=== PATIENT | male | born 1955 | race Caucasian/White ===

== ENCOUNTER 2019-06-16 07:37 | Inpatient (IN) ==
--- NOTE | 2019-06-01 19:42 | PAT Medication Instructions ---
Medication Instructions Date of Service June 01, 2019 Home Medications acetaminophen [Tylenol Arthritis Pain] 1,300 mg PO HS 05/15/19 [History Confirmed 05/15/19] atorvastatin 10 mg PO HS 05/15/19 [History Confirmed 05/15/19] cholecalciferol (vitamin D3) [Vitamin D3] 2,000 unit PO QAM 05/15/19 [History Confirmed 05/15/19] diclofenac sodium 2 g TOPICAL UD PRN 05/15/19 [History Confirmed 05/15/19] glucosamine sulfate [Glucosamine] 2,000 mg PO QAM 05/15/19 [History Confirmed 05/15/19] lisinopril 10 mg PO HS 05/15/19 [History Confirmed 05/15/19] [Multivitamin 50 Plus] 1 tab PO QAM 05/15/19 [History Confirmed 05/15/19] naproxen sodium [Aleve] 440 mg PO QAM 05/15/19 [History Confirmed 05/15/19] ASK your surgeon for instructions naproxen sodium [Aleve] 440 mg PO QAM 05/15/19 [History Confirmed 05/15/19] STOP taking 2 weeks before surgery (or as soon as possible if surgery is within 2 weeks) glucosamine sulfate [Glucosamine] 2,000 mg PO QAM 05/15/19 [History Confirmed 05/15/19] STOP taking 24 hours before surgery diclofenac sodium 2 g TOPICAL UD PRN 05/15/19 [History Confirmed 05/15/19] DO NOT take the morning of surgery cholecalciferol (vitamin D3) [Vitamin D3] 2,000 unit PO QAM 05/15/19 [History Confirmed 05/15/19] [Multivitamin 50 Plus] 1 tab PO QAM 05/15/19 [History Confirmed 05/15/19] Take evening before surgery acetaminophen [Tylenol Arthritis Pain] 1,300 mg PO HS 05/15/19 [History Confirmed 05/15/19] atorvastatin 10 mg PO HS 05/15/19 [History Confirmed 05/15/19] lisinopril 10 mg PO HS 05/15/19 [History Confirmed 05/15/19] Other Notes If you have any questions please call us at [phone] or [phone] or [phone] or [phone]
--- NOTE | 2019-06-02 11:43 | Anesthesiology Consultation ---
Date of Service June 02, 2019 Assessment & Plan (1) Encounter for pre-operative examination: - Awaiting review of preop testing (labs, EKG, CXR). Chart Review Chart Review: Patient seen in Pre Admission Testing Teaching & Discussion Pre-Anesthesia Teaching/Discussion Notes: Instructed NPO after midnight before surgery,except medications with 15 cc of water. Medication instructions provided according to the PAT guidelines. History Surgery Operation Date: 06/16/19 09:25 Proposed Procedures p Left Anterior Total Hip Arthroplasty - Felice Gillette DO Height/Weight Height: 5 ft 11 in Weight: 80.6 kg Allergies Allergy/AdvReac Type Severity Reaction Status Date / Time No Known Allergies Allergy Verified 05/15/19 08:24 Medications Home Medications Medication Instructions Recorded Confirmed Last Taken acetaminophen [Tylenol Arthritis 1,300 mg PO HS 05/15/19 05/15/19 Unknown Pain] atorvastatin 10 mg PO HS 05/15/19 05/15/19 Unknown cholecalciferol (vitamin D3) 2,000 unit PO QAM 05/15/19 05/15/19 Unknown [Vitamin D3] diclofenac sodium 2 g TOPICAL UD PRN 05/15/19 05/15/19 Unknown glucosamine sulfate [Glucosamine] 2,000 mg PO QAM 05/15/19 05/15/19 Unknown lisinopril 10 mg PO HS 05/15/19 05/15/19 Unknown [id number] 1 tab PO QAM 05/15/19 05/15/19 Unknown [Multivitamin 50 Plus] naproxen sodium [Aleve] 440 mg PO QAM 05/15/19 05/15/19 Unknown Past Medical History Medical History Chronic back pain Hyperlipidemia Hypertension Osteoarthritis Temporomandibular joint disorder + clicking, no locking Exercise / Class Metabolic Activity II 4-5 Yardwork/Stairs/Walk up hill Past Family History Family History Mother No problems noted. Father Family history of diabetes mellitus Brother Family history of diabetes mellitus Past Surgical History Surgical History H/O removal of testicle LEFT H/O wrist surgery RIGHT History of colonoscopy Past Anesthesia History No Hx of Anesthesia Complications Mother- post-op respiratory distress (no further details). History of PONV No Hx of PONV and No Hx of Motion Sickness Social History Smoking Status: Former smoker tobacco type: cigars Do You Dip or Chew Tobacco: No Smoking End Date: QUIT 05/18/19 (hx tobacco use 15+ years) Hx Alcohol Use: No Hx Substance Use: No Review of Systems Patient denies chest pain, shortness of breath, dyspnea on exertion, cough, wheezing, palpitations. Physical Exam Vital Signs VITALS BP 124/70 P 70 TEMP 97.6 SP02 98%RA RESP 16 PHYSICAL Full neck and c-spine range of motion. Full TMJ range of motion. TMD 3 finger breaths Mallampati Score 1 Dentition: missing molar, chipped molar Lungs: clear throughout to auscultation Cardiac: regular rate and rhythm, no murmurs noted Spine: normal Carotid arteries: negative bruit Extremities: no edema
[2019-06-02 12:11] LABS: Basophils # (auto) 0.02 K/uL (0-0.2); Basophils % (auto) 0.2 %; Eosinophils # (auto) 0.13 K/uL (0-0.5); Eosinophils % (auto) 1.2 %; Hematocrit (blood only) 46.3 % (42-52); Hemoglobin 16.3 g/dL (14.0-18.0); Immature Granulocytes # (auto) 0.03 K/uL (0.00-0.02); Immature Granulocytes % (auto) 0.3 %; Lymphocytes # (auto) 3.71 K/uL (1.2-3.4); Lymphocytes % (auto) 35.3 %; Mean Corpuscular Hemoglobin 33.8 pg (25-34); Mean Corpuscular Hgb Conc 35.2 g/dL (32-36); Mean Corpuscular Volume 96.1 fL (80-100); Mean Platelet Volume 9.4 fL (7.4-10.4); Monocytes # (auto) 0.67 K/uL (0.11-0.59); Monocytes % (auto) 6.4 %; Neutrophils # (auto) 5.94 K/uL (1.4-6.5); Neutrophils % (auto) 56.6 %; Platelet Count 247 K/uL (130-400); Red Blood Count 4.82 M/uL (4.7-6.1)
--- NOTE | 2019-06-02 12:20 | XRay Report ---
XR chest Pre-admission PA/Lat CLINICAL HISTORY: 63 years-old Male presenting with preoperative assessment. TECHNIQUE: PA and lateral views of the chest were obtained. COMPARISON: None. FINDINGS: Atherosclerosis of the aortic arch. Cardiac silhouette normal in size. Lungs and pleural spaces clear . Osseous structures normal. Upper abdomen normal. IMPRESSION: 1. No acute cardiopulmonary disease. ACT 112: Negative or not required by law. Electronically signed by: Johan Ulloa M.D. 06/02/2019 12:18 PM
[2019-06-02 12:27] LABS: Partial Thromboplastin Ratio 0.9; Partial Thromboplastin Time 25.1 Seconds (21.0-31.0); Prothrombin Time 10.2 Seconds (9.0-12.0)
[2019-06-02 12:31] LABS: Estimated Average Glucose 114 mg/dl; Hemoglobin A1C 5.6 % (4.5-5.6)
[2019-06-02 12:35] LABS: Appearance Urine Clear (Clear); Bacteria Urine Automated Negative (Negative); Bilirubin Urine Negative (Negative); Blood Urine Trace (Negative); Cast Urine Automated 0 /lpf (0-5); Color Urine Dark Yellow; Glucose Urine UA Negative (Negative); Ketones Urine Trace (Negative); Leukocyte Esterase Urine Negative (Negative); Nitrite Urine Negative (Negative); Protein Urine Negative (Negative); Specific Gravity Urine 1.029 (1.000-1.030); Urobilinogen Urine Negative (Negative)
[2019-06-02 14:09] LABS: Albumin Level 4.2 gm/dl (3.4-5.0); BUN Creatinine Ratio 25.9 (10-20); Calcium 9.4 mg/dl (8.5-10.1); Creatinine Clr Calc Pharmacy 83.2 ml/min; Est GFR (African American) 95.4; Est GFR (Non-African American) 82.3; Potassium 4.4 mmol/L (3.5-5.1)
--- NOTE | 2019-06-02 23:00 | Electrocardiogram Report ---
Test Reason : Blood Pressure : / mmHG Vent. Rate : 066 BPM Atrial Rate : 066 BPM P-R Int : 136 ms QRS Dur : 088 ms QT Int : 396 ms P-R-T Axes : 061 060 055 degrees QTc Int : 415 ms Normal sinus rhythm Normal ECG No previous ECGs available Confirmed by Jerson Borden ([id number]) on 06/02/2019 11:00:30 PM Referred By: Felice Gillette Confirmed By:Jerson Borden
--- NOTE | 2019-06-15 20:25 | History & Physical Report ---
Date of Service June 15, 2019 Assessment & Plan (1) Degenerative joint disease of left hip: I have indicated the patient for left anterior total hip replacement. The risks, benefits and complications of surgery were explained to the patient which include but not limited to infection, acute blood loss, DVT/PE, injury to nerves, vessels, bone, soft tissue, arthrofibrosis, chronic pain, failure of the prosthesis, hip dislocation, leg length discrepancy, need for additional surgery, cardiac and pulmonary events and . The patient wished to proceed with surgery and informed consent was obtained at this time. We will plan for ASA BID post-operatively for DVT prophylaxis. Upon discharge the patient will be discharged home with home health services. Appropriate clearances by PCP were obtained. History of Present Illness Chief Complaint: Left hip pain/djd Primary Care Provider: Marilia Hobbs DO The patient is a 63 year old male who presents with complaints of severe left hip pain and DJD. The patient has failed outpatient conservative treatments to this point which included NSAIDs, IA corticosteroid injection, PT and a home exercise/walking program. The patient's pain and limited function have progressed to the point where they severely hinder their activities of daily living and they no longer tolerate exercise programs. They are requesting to proceed with total hip replacement surgery. Allergies Allergy/AdvReac Type Severity Reaction Status Date / Time No Known Allergies Allergy Verified 06/16/19 08:09 Home Medications Home Medications Medication Instructions Recorded Confirmed Type acetaminophen [Tylenol Arthritis 1,300 mg PO HS 05/15/19 06/16/19 History Pain] atorvastatin 10 mg PO HS 05/15/19 06/16/19 History cholecalciferol (vitamin D3) 2,000 unit PO QAM 05/15/19 06/16/19 History [Vitamin D3] diclofenac sodium 2 g TOPICAL UD PRN 05/15/19 06/16/19 History glucosamine sulfate [Glucosamine] 2,000 mg PO QAM 05/15/19 06/16/19 History lisinopril 10 mg PO HS 05/15/19 06/16/19 History emlvuflkxzao-hvqxsmef-fyjskh 1 tab PO QAM 05/15/19 06/16/19 History [Multivitamin 50 Plus] naproxen sodium [Aleve] 440 mg PO QAM 05/15/19 06/16/19 History Past Med/Surg History Medical History Chronic back pain Hyperlipidemia Hypertension Osteoarthritis Temporomandibular joint disorder + clicking, no locking Surgical History (Updated 06/16/19 @ 08:08 by Demetria Nielsen RN) H/O removal of testicle right H/O wrist surgery RIGHT History of colonoscopy Family History Mother No problems noted. 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 Required: No Beliefs That Will Affect Care: None Current Living Situation: Spouse Other Information That Helps Us Care for You: No Feels Safe at Home: Yes Safety Concerns: Feels Safe At This Time Smoking Status: Former smoker Tobacco Type: cigars ; Do You Dip or Chew Tobacco: No ; Smoking End Date: QUIT 05/18/19 (hx tobacco use 15+ years) ; Second Hand Exposure: No ; Hx Alcohol Use: No Hx Substance Use: No Review of Systems Review of Systems: All systems reviewed & are unremarkable except as noted in HPI & below Constitutional: as per Subjective / HPI Physical Exam Physical Exam: LLE NVSI +EHL/FHL/TA/GS SILT grossly, +2 DP pulse, compartments soft NT, limited painful ROM of the hip antalgic gait. Constitutional: WD/WN, vitals as above Eyes: PERRL, conjunctivae normal, anicteric sclerae ENMT: external ear and nose normal, oropharynx normal Neck: trachea midline, no thyromegaly Respiratory: normal respiratory effort, lungs clear to auscultation Cardiovascular: RRR, no murmur, no edema Gastrointestinal (Abdomen): normal bowel sounds, soft, nontender, no hepatosplenomegaly Musculoskeletal: no cyanosis or clubbing, extremities motor strength 5/5 Skin: no rashes, warm and dry Neurologic: patellar DTR's 2+ bilat, sensation intact Psychiatric: A+Ox3, euthymic affect Lymphatic: no cervical or axillary lymphadenopathy Results & Data Diagnostic Findings Multiple views of the hip demonstrates severe DJD with complete loss of the joint space. +osteophytes, +sclerosis, +subchondral cysts.
[~2019-06-16 07:37] MED LIST: ACETAMINOPHEN 500 MG TAB PO SCH; BUPIVACAINE 0.5 % 5 MG/1 ML PF 10ML VIAL ONE; CEFAZOLIN 2000MG 2,000 MG/15 ML SYR IV SCH; CeleBREX 200 MG CAP PO SCH; FAMOTIDINE 20 MG TAB PO SCH; LR 500ML BOLUS, THEN 15ML/HR IV SCH; METOCLOPRAMIDE HCL 10 MG TABLET PO SCH; ROPIVACAINE 0.5% HCL/PF 150 MG, BUPIVACAINE 0.5% MPF 30 ML, EPINEPHrine 30MG/30ML (OR U... INFIL SCH; TRANEXAMIC ACID 1,000 MG **IV Intra-op IV SCH; TRANEXAMIC ACID 1,000 MG **IV Pre-op IV SCH; dexAMETHasone 4 MG TAB PO SCH
[2019-06-16] MEDS ORDERED: MIDAZOLAM HCL 1 MG/ML 2ML VIAL ONE (07:47)
[2019-06-16] MEDS ORDERED: GLYCOPYRROLATE 0.2 MG/ML VIAL ONE (08:40)
[2019-06-16] MEDS ORDERED: KETAMINE HCL INJ 50 MG/ML 10 ML VIAL ONE (08:40)
[2019-06-16] MEDS ORDERED: PROPOFOL IV EMULSION 10 MG/ML 20 ML VIAL IV ONE ×3 (08:40→11:00)
[2019-06-16] MEDS ORDERED: LIDOCAINE HCL 2% 2 ML VIAL/AMP(20MG/ML) INFIL ONE (08:40)
[2019-06-16] MEDS ORDERED: ONDANSETRON INJ 2 MG/ML 2 ML VIAL ONE (08:40)
[2019-06-16] MEDS ORDERED: ONDANSETRON INJ 2 MG/ML 2 ML VIAL IV PRN ×2 (09:03→12:53)
[2019-06-16] MEDS ORDERED: fentaNYL citrate 100 MCG/2 ML VIAL IV PRN (09:03)
[2019-06-16] MEDS ORDERED: ATROPINE SULFATE 0.1 MG/ML 10ML SYR IV PRN (09:03)
[2019-06-16] MEDS ORDERED: ePHEDrine sulfate 50 MG/ML AMP IV PRN (09:03)
--- NOTE | 2019-06-16 09:29 | History & Physical Bridge Note ---
Date of Service June 16, 2019 History & Physical Bridge Note I have examined the patient, reviewed the History & Physical and in the interval since the performance of the History & Physical I have noted the following changes of clinical significance: no changes noted
[2019-06-16] MEDS ORDERED: ORTHO JOINT ANESTHETIC ONE (09:43)
[2019-06-16] MEDS ORDERED: BACITRACIN INJ 50,000 UNIT VIAL ONE (09:44)
[2019-06-16] MEDS ORDERED: PHENYLEPHRINE 100MCG/ML 5ML SYR ONE (10:55)
--- NOTE | 2019-06-16 11:51 | Post Operative Brief Note ---
Immediate Post Op Note v1 Date of Surgery June 16, 2019 Pre & Post Diagnosis Operation Date: 06/16/19 09:45 Pre-Op Diagnosis: LEFT HIP OSTEOARTHRITIS Post-Op Diagnosis: LEFT HIP OSTEOARTHRITIS I identified the patient and participated in the time-out.: Yes Procedure Operation Date: 06/16/19 09:45 Actual Procedures p Left Anterior Total Hip Arthroplasty(Left) - Felice Gillette DO Surgeon Felice Gillette DO Health Promotion Educator Baudilio Sanchez Estimated Blood Loss 120 Findings Consistent with Post-Op Diagnosis Fluids 1600 cc LR Specimens femoral head Anesthesia Type Spinal MAC Complications none Disposition Disposition: Recovery Room Overlapping Procedure I was present for: the critical portions of procedure. I was immediately available: during the entire case. Back up surgeon: was not required during procedure.
--- NOTE | 2019-06-16 11:53 | Operative Report ---
Post Operative Report Pre & Post Diagnosis Operation Date: 06/16/19 09:45 Pre-Op Diagnosis: LEFT HIP OSTEOARTHRITIS Post-Op Diagnosis: LEFT HIP OSTEOARTHRITIS I identified the patient and participated in the time-out.: Yes Procedure Operation Date: 06/16/19 09:45 Actual Procedures p Left Anterior Total Hip Arthroplasty(Left) - Felice Gillette DO Surgeon Felice Gillette DO Hydrotherapist Baudilio Sanchez Estimated Blood Loss 120 Findings Consistent with Post-Op Diagnosis Fluids 1600 cc LR Specimens femoral head Anesthesia Type Spinal MAC Complications none Disposition Disposition: Recovery Room Indications The patient is a 63-year-old male who presents with severe progressive left hip DJD who has failed outpatient conservative treatments. I indicated the patient for a anterior total hip replacement and the risks and benefits were explained in detail which include but not limited to infection, bleeding, blood clot, damage to surrounding bone, nerves, vessels, soft tissue, hip dislocation, failure of the prosthesis, leg length discrepancy, need for additional surgery and . The patient agreed to proceed with replacement of the hip and informed consent was obtained. Appropriate clearances were obtained. Description of Procedure COMPONENTS USED: [employer] hip system: Acetabulum size 58, femur size 9 high offset, femoral head 36+0, liner 5836, acetabular screw 25 mm x 1. DESCRIPTION OF PROCEDURE: Following satisfactory spinal anesthesia, the patient was placed supine on the OR table. The right leg was placed in the well leg ewing and the left leg in the traction device. The left leg was prepared with ChloraPrep and draped sterilely. A surgical timeout was performed, patient blanca ntified and site bernard verified. Appropriate antibiotics were given. A standard anterior approach in the interval between the sartorius and tensor muscles was performed. Dissection was carried down through subcutaneous tissues. Electrocautery was utilized for hemostasis. Circumflex femoral vessels were identified, tied and ligated. The anterior capsular fat pad was removed and the capsulotomy was performed revealing the arthritic femoral neck and head. A femoral neck cut was made with reciprocating saw and the bone fragments removed. The acetabular self-retraining retractor was placed. Acetabular reaming was completed under fluoroscopic guidance, a 58 shell was impacted into an anatomic position and secured with a dome screw. Local anesthetic was placed and following irrigation, the polyethylene liner was placed. The femur was placed into position of external rotation, extension and adduction. Femoral canal was prepared up to the size 9 high offset. Trial reduction with a +0 neck length head showed good soft tissue tension, leg lengths restored, and good fit and fill of the proximal canal using fluoroscopic landmarks. The hip was dislocated. The trial component was removed. The final implant was placed. The hip was irrigated with sterile saline solution and reduced. A Betadine soak was performed. After 3 minutes, the hip was once more irrigated with copious sterile saline solution with bacitracin. Aysha-incisional soft tissue was injected utilizing [place] [employer] which includes a combination of Ropivicaine 0.5% 150mg, Bupivicaine 0.5%/Epinephrine 1:200,000 30ml, Toradol 30mg, Dexamethasone 4mg, Ketamine 10mg, Clonidine 100mcg and NSS 30ml solution. The capsule was then closed with 1-0 Vicryl interrupted figure of eight sutures. The fascia was closed with a running suture of #1 Vicryl, the subcutaneous tissues with 2-0 Vicryl and the skin with a running subcuticular stitch of 3-0 V-Loc. Dermabond prineo and a dry dressing were applied. The patient tolerated the procedure well and was transported to PACU in stable condition. Due to the complex nature of the procedure, the entire surgery was performed with the operational assistance of Baudilio sanchez PA-C. The assistant speech language pathologist, under direct supervision, was involved in the actual performance of all aspects of the surgical procedure including patient positioning, hemostasis, tissue retraction, instrument management and wound closure. I attest to the content of the Intraoperative Record and any orders documented therein. Any exceptions are noted below.
--- NOTE | 2019-06-16 11:56 | Fluoroscopy Report ---
FL hip LT 1V HISTORY: 63 years-old Male LEFT ANTERIOR HIP left hip total joint arthroplasty. History of degenerat elan joint disease COMPARISON: None available TECHNIQUE: 2 views of the left hip were obtained utilizing 53.7 seconds fluoroscopy time FINDINGS: Satisfactory alignment of the left hip total joint arthroplasty. No acute fracture or retained foreig n body. Expected postsurgical soft tissue swelling and deep tissue air. IMPRESSION: Satisfactory alignment of the left hip total joint arthroplasty. ACT 112: Negative or not required by law. The above report was generated using voice recognition software. It may contain grammatical, syntax o r spelling errors. Electronically signed by: Alex Noguera M.D. 06/16/2019 11:54 AM
--- NOTE | 2019-06-16 12:30 | XRay Report ---
XR hip 1V LT w pelvis CLINICAL HISTORY: Postoperative evaluation. COMPARISON: None FINDINGS: Alignment of the total left hip arthroplasty is anatomic. There is no periprosthetic fract ure or unexpected radiopaque foreign body. There is an acetabular screw. IMPRESSION: Expected findings following total left hip arthroplasty. ACT 112: Negative or not required by law. Electronically signed by: Terrence Arthur M.D. 06/16/2019 12:29 PM
--- NOTE | 2019-06-16 12:32 | Anesthesiology Progress Note ---
Date of Service June 16, 2019 Anesthesia Post Procedure Vital Signs Vital Signs: Temp Pulse Pulse Resp BP BP Pulse Ox 06/16/19 12:30 97.9 F 68 16 104/64 97 06/16/19 12:20 67 16 91/58 L 97 06/16/19 12:14 97.2 F L 72 16 88/58 L 96 06/16/19 08:11 97.9 F 66 20 138/82 97 Transfer of Care Handoff Completed per policy Notes Mental Status: alert / awake / arousable and participated in evaluation Patient Amnestic to Procedure: Yes Nausea / Vomiting: adequately controlled Pain: adequately controlled Airway Patency, RR, SpO2: stable & adequate BP & HR: stable & adequate Hydration State: stable & adequate Neuraxial Anesthesia: was administered and sensory block is resolving Anesthetic Complications: no major complications apparent and Pt Satisfied with anesthetic care
[2019-06-16] MEDS ORDERED: OXYCODONE HCL IR 5 MG TAB (IMMEDIATE RELEASE) PO PRN (12:53)
[2019-06-16] MEDS ORDERED: HYDROmorphone INJ 0.5 MG/0.5 ML SYR IV PRN (12:53)
[2019-06-16] MEDS ORDERED: NALOXONE HCL 0.4 MG/1 ML VIAL/CARP IV PRN (12:53)
[2019-06-16] MEDS ORDERED: MAGNESIUM HYDROXIDE SUSP 30 ML UDC PO PRN (12:53)
[2019-06-16] MEDS ORDERED: bisacodyL 10 MG SUPP PR PRN (12:53)
[2019-06-16] MEDS ORDERED: METOCLOPRAMIDE HCL INJ 5 MG/ML 2 ML VIAL IV PRN (12:53)
[2019-06-16] MEDS ORDERED: SODIUM CHLORIDE 0.9% 1000ML 1,000 ML IV SCH (13:30)
[2019-06-16] MEDS: ACETAMINOPHEN 500 MG TAB PO SCH ×2 (14:21→21:13)
[2019-06-16] MEDS: KETOROLAC TROMETHAMINE 15 MG/ML VIAL IV SCH (18:02)
[2019-06-16] MEDS: CEFAZOLIN 2000MG 2,000 MG/15 ML SYR IV SCH (18:06)
--- NOTE | 2019-06-16 20:06 | Orthopedic Progress Note ---
Date of Service June 16, 2019 Assessment & Plan (1) Degenerative joint disease of left hip: s/p L anterior CHESTER -ancef x 24 -DVT ppx: SCDs, TEDs, ASA BID -WBAT LLE -PT/OT -PO XR: demonstrates well aligned well fixed prothesis without fracture dislocation -am labs -DC planning Subjective Post Operative Progress Note Patient seen sitting up in bed, comfortable, denies complaints, pain well controlled, no acute issues. Review of Systems Review of Systems: All systems reviewed & are unremarkable except as noted in HPI & below Constitutional: as per Subjective / HPI Physical Exam Physical Exam: LLE NVSI +EHL/FHL/TA/GS SILT grossly, +2 DP pulse, compartments soft NT, dressing cdi. Constitutional: WD/WN, vitals as above Results & Data ([facility]) Vital Signs (Past 12 Hours) Vital Signs Temp Pulse Pulse Pulse Pulse Resp BP 06/16/19 19:22 36.3 C L 86 16 143/74 H 06/16/19 15:45 36.4 C L 73 16 152/90 H 06/16/19 14:56 36.3 C L 67 16 122/74 06/16/19 13:52 60 18 114/72 06/16/19 13:21 62 18 105/68 06/16/19 12:45 36.5 C 59 L 18 99/64 L 06/16/19 12:30 36.6 C 68 16 104/64 06/16/19 12:20 67 16 91/58 L 06/16/19 12:14 36.2 C L 72 16 88/58 L 06/16/19 08:11 36.6 C 66 20 BP Pulse Ox 06/16/19 19:22 95 06/16/19 15:45 97 06/16/19 14:56 98 06/16/19 13:52 98 06/16/19 13:21 99 06/16/19 12:45 100 06/16/19 12:30 97 06/16/19 12:20 97 06/16/19 12:14 96 06/16/19 08:11 138/82 97
[2019-06-16] MEDS: DOCUSATE SODIUM 100 MG CAP PO SCH (20:55)
[2019-06-16] MEDS ORDERED: lisinopriL 10 MG TAB PO SCH (21:00)
[2019-06-16] MEDS ORDERED: SENNA 8.6 MG TAB PO SCH (21:00)
[2019-06-16] MEDS ORDERED: ATORVASTATIN 10 MG TAB PO SCH (21:00)
[2019-06-17] MEDS: KETOROLAC TROMETHAMINE 15 MG/ML VIAL IV SCH ×3 (00:45→12:50)
[2019-06-17] MEDS: CEFAZOLIN 2000MG 2,000 MG/15 ML SYR IV SCH (02:22)
[2019-06-17] MEDS: ACETAMINOPHEN 500 MG TAB PO SCH ×2 (05:29→13:42)
[2019-06-17 05:44] LABS: Hematocrit (blood only) 38.7 % (42-52); Hemoglobin 13.7 g/dL (14.0-18.0); Mean Corpuscular Hgb Conc 35.4 g/dL (32-36); Mean Corpuscular Volume 93.3 fL (80-100); Mean Platelet Volume 9.6 fL (7.4-10.4); Platelet Count 235 K/uL (130-400); RDW Coefficient of Variation 11.9 % (11.5-14.5); RDW Standard Deviation 40.4 fL (36.4-46.3); Red Blood Count 4.15 M/uL (4.7-6.1)
[2019-06-17 06:13] LABS: Basophils # (auto) 0.01 K/uL (0-0.2); Immature Granulocytes # (auto) 0.08 K/uL (0.00-0.02); Immature Granulocytes % (auto) 0.3 %; Lymphocytes # (auto) 1.38 K/uL (1.2-3.4); Lymphocytes % (auto) 5.8 %; Monocytes # (auto) 1.29 K/uL (0.11-0.59); Monocytes % (auto) 5.4 %; Neutrophils # (auto) 21.14 K/uL (1.4-6.5); Neutrophils % (auto) 88.5 %
[2019-06-17 06:19] LABS: BUN Creatinine Ratio 19.5 (10-20); Creatinine Clr Calc Pharmacy 70.9 ml/min; Est GFR (African American) 78.6; Est GFR (Non-African American) 67.8; Potassium 4.2 mmol/L (3.5-5.1)
[2019-06-17] MEDS: DOCUSATE SODIUM 100 MG CAP PO SCH (08:46)
--- NOTE | 2019-06-17 08:48 | Orthopedic Progress Note ---
Date of Service June 17, 2019 Assessment & Plan (1) Degenerative joint disease of left hip: s/p L anterior CHESTER POD#1 -ancef x 24 -DVT ppx: SCDs, TEDs, ASA BID -WBAT LLE -PT/OT -PO XR: demonstrates well aligned well fixed prothesis without fracture dislocation -am labs: hgb 13.7 -DC planning home with HH Subjective Post Operative Progress Note Patient seen sitting up in bed, comfortable, denies complaints, pain well controlled, no acute issues. Denies f/c/n/v/sob/cp. Review of Systems Review of Systems: All systems reviewed & are unremarkable except as noted in HPI & below Constitutional: as per Subjective / HPI Physical Exam Physical Exam: LLE NVSI +EHL/FHL/TA/GS SILT grossly, +2 DP pulse, compartments soft NT, dressing cdi. Constitutional: WD/WN, vitals as above Results & Data ([facility]) Vital Signs (Past 12 Hours) Vital Signs Temp Pulse Resp BP Pulse Ox 06/17/19 07:53 36.4 C L 79 16 142/80 H 94 06/17/19 02:58 36.6 C 72 15 120/71 94 06/16/19 23:37 36.4 C L 72 16 144/74 H 95 06/16/19 20:50 70 134/80 Laboratory Results 06/17/19 06/17/19 Range/Units 04:56 04:56 WBC 23.90 H (4.8-10.8) K/uL RBC 4.15 L (4.7-6.1) M/uL Hgb 13.7 L (14.0-18.0) g/dL Hct 38.7 L (42-52) % MCV 93.3 (80-100) fL MCH 33.0 (25-34) pg MCHC 35.4 (32-36) g/dL RDW Std Deviation 40.4 (36.4-46.3) fL RDW Coeff of Radha 11.9 (11.5-14.5) % Plt Count 235 (130-400) K/uL MPV 9.6 (7.4-10.4) fL Immature Gran % (Auto) 0.3 % Neut % (Auto) 88.5 % Lymph % (Auto) 5.8 % [place] % (Auto) 5.4 % Eos % (Auto) 0.0 % Baso % (Auto) 0.0 % Immature Gran # (Auto) 0.08 H (0.00-0.02) K/uL Neut # (Auto) 21.14 H (1.4-6.5) K/uL Lymph # (Auto) 1.38 (1.2-3.4) K/uL [place] # (Auto) 1.29 H (0.11-0.59) K/uL Eos # (Auto) 0.00 (0-0.5) K/uL Baso # (Auto) 0.01 (0-0.2) K/uL Sodium 141 (136-145) mmol/L Potassium 4.2 (3.5-5.1) mmol/L Chloride 110 H (98-107) mmol/L Carbon Dioxide 23 (21-32) mmol/L Anion Gap 8.0 (3-11) BUN 22 H (7-18) mg/dl Creatinine 1.15 (0.6-1.4) mg/dl Est Cr Clr Drug Dosing 70.9 ml/min Est GFR ( Amer) 78.6 Est GFR (Non-Af Amer) 67.8 BUN/Creatinine Ratio 19.5 (10-20) Glucose 109 H (70-99) mg/dl Calcium 9.0 (8.5-10.1) mg/dl
[2019-06-17] MEDS ORDERED: MULTIVITAMIN TAB PO SCH (09:00)
[2019-06-17] MEDS ORDERED: ASPIRIN 325 MG ECTAB PO SCH (09:00)
--- NOTE | 2019-06-17 19:56 | Discharge Summary ---
Date of Service June 17, 2019 Admission HPI Per Admitting Provider The patient is a 63 year old male who presents with complaints of severe left hip pain and DJD. The patient has failed outpatient conservative treatments to this point which included NSAIDs, IA corticosteroid injection, PT and a home exercise/walking program. The patient's pain and limited function have progressed to the point where they severely hinder their activities of daily living and they no longer tolerate exercise programs. They are requesting to proceed with total hip replacement surgery. Principal Diagnosis Left anterior total hip replacement Discharge Exam LLE NVSI +EHL/FHL/TA/GS SILT grossly, +2 DP pulse, compartments soft NT, dressing cdi. Constitutional WD/WN, vitals as above Discharge Data Allergies Allergy/AdvReac Type Severity Reaction Status Date / Time No Known Allergies Allergy Verified 06/16/19 08:09 Consultations 06/17/19 08:00 Consult Case Management - Discharge Planning Routine Procedures Performed Operation Date: 06/16/19 09:45 Actual Procedures p Left Anterior Total Hip Arthroplasty(Left) - Felice Gillette DO Ordered Studies 06/16/19 09:45 FL fluoroscopy <1hr Routine FL hip LT 1V Routine Hospital Course (1) Degenerative joint disease of left hip: The patient is a 63 -year-old male who presents with long standing history of severe left hip DJD and failed outpatient conservative treatments. The patient's symptoms have progressed to the point where it has been difficult to perform even normal activities of daily living. I indicated the patient for a left anterior total hip arthroplasty, the risks, benefits and complications of the procedure include but not limited to infection, bleeding, damage to bone, nerves, vessels, surrounding soft tissue, may develop blood clots, loss of function, leg length discrepancy, dislocation, failure of the components, loosening of the components, the need for additional surgery and . The patient wished to proceed with surgery at this time and informed consent was obtained. Hospital Course: On 06/16/19 the patient was taken to the operating room, adequate anesthesia administered and underwent a left anterior total hip arthroplasty. The patient tolerated the procedure well and was taken to the PACU in stable condition. Post-operatively the patient was started on a DVT ppx medication and given appropriate IV antibiotics. Consults were placed to physical therapy, occupational therapy and case management. On POD#1, the patient did well overnight and their pain was well controlled. Labs were drawn and the Hgb was 13.7. The patient progressed well with PT. Dressings were changed at this time and the incision was clean, dry and intact. On POD#2, The patients hospital stay was relatively uneventful and they were deemed stable by the orthopedic team and consultants to be discharged home with HH on 06/17/19. Discharge Instructions: Upon discharge the patient may weight bear as tolerates through their operative extremity. They were instructed to keep the incision clean and dry at all times. The patient may shower but should not submerge the incision, avoid bathing, pools and hot tubes. The patient was given a script for pain medication and should take as instructed. The patient was given a script for DVT ppx 325mg ASA BID and should take as directed. The patient was instructed to not drive or travel for long distances until cleared to do so. If the patient develops any symptoms of fevers, chills, nausea, vomiting, increased redness, swelling, pain or drainage from the surgical site, they should notify the office and/or proceed to the nearest emergency room. The patient should follow up in 10-14 days after surgery for their routine post-operative follow-up appointment and should call the office to confirm the date and time. s/p L anterior [place] POD#1 -ancef x 24 -DVT ppx: SCDs, TEDs, ASA BID -WBAT LLE -PT/OT -PO XR: demonstrates well aligned well fixed prothesis without fracture dislocation -am labs: hgb 13.7 -DC planning home with Total Time Total Time Spent Total Time Spent (In Minutes): 30 minutes Discharge Plan Discharge Items Patient Disposition: Home - Home Health Services Reason For Visit: LEFT HIP OSTEOARTHRITIS Discharge Diagnosis: Left anterior total hip replacement Condition on Discharge: Good Activity: Per Instructions section Lifting: Wait until after follow-up appointment Bathing: Keep incision dry Bathing Comment: No bathing, pools or hot tubs. Sexual Activity: Wait until after follow-up appointment Exercise/Sports: Wait until after follow-up appointment Driving/Machine Use: No driving Weightbearing: Full weightbearing Non-emergency contact: Primary Care Provider and Surgeon Call non-emergency contact if: you have any medication questions, your symptoms worsen, your pain is not controlled, your pain is worsening, your pain is unusual for you, your pain is concerning for you, you have a fever, your temperature is above 101, your wound has increased redness, your wound has increased drainage and your wound pain has increased Follow-up/Referrals: Marilia Hobbs, [Primary Care Provider] - Diet: Regular Addtl Attending Provider Instructions: ACTIVITY RECOMMENDATIONS: SELF CARE INSTRUCTIONS AFTER TOTAL HIP REPLACEMENT : Direct Anterior Approach Until the incision and soft tissues around your hip have healed, there is a possibility that the hip prosthesis could dislocate. A. Hip flexion ( Up & Down out of chair or steps ) may be difficult. This is normal. B. Numbness in front of the thigh is also normal for a few weeks. C. Use hand rails when walking on stairs. D. Wear low heeled shoes with non-slip soles. E. Be sure that your floors are free of things that could trip you - throw rugs, electrical cords, small objects. Avoid wet and waxed floors, especially with crutches and canes. F. Try to walk several times a day with rest periods between. G. Continue with all the exercises taught to you in the hospital. Again, make walking a part of your daily routine. SPECIAL CARE INSTRUCTIONS: VERY IMPORTANT TO READ AND REVIEW A. You may still be at risk for phlebitis and blood clots. 1. Wear surgical stockings (LEWIS hose) for 2 weeks after surgery to improve circulation and reduce swelling. 2. Take Aspirin 325mg twice daily for 4 weeks or as directed by your doctor. This is your blood thinner. 3. High risk patients may be prescribed a stronger blood thinner if necessary. 4. If you are on Coumadin normally, your family doctor/inspection machine tender should monitor your blood work. Expect a phone call the day of or the day after bloodwork is drawn to adjust your dosage. B. You must take antibiotics before having dental work, bladder, bowel and other surgery. Your doctor will provide you with a permanent card to carry describing precautions. C. Call [facility] if you have a fever, redness or swelling around the incision, cloudy drainage from incision, or sudden increase in pain in your hip, not relieved by your regular pain medication. D. Please call the office at if you have any concerns or questions about your operation or recovery. * YOU MAY SHOWER, NO TUB BATHS UNTIL CLEARED BY YOUR DOCTOR. - Keep an extra close eye on the top portion of your incision. Be sure to keep clean & dry. * WEAR LEWIS HOSE 20 HOURS PER DAY FOR 2 WEEKS. * YOU MAY PROGRESS FROM A WALKER, TO A CANE, TO INDEPENDENT AT YOUR OWN PACE. * MOST PATIENTS WILL HAVE HOME NURSING FOR THERAPY. IF YOU DECIDE TO DO OUTPATIENT PHYSICAL THERAPY, PLEASE SCHEDULE THIS 3 TIMES PER WEEK. * DERMABOND Prineo- This is a mesh tape dressing that is covered with glue. It should remain in place until the incision is properly healed, usually 10-14 days. This dressing is designed to naturally slough off. You may trim the excess mesh tape as it peels off. Incision may be briefly wet in a shower. Dry immediately by blotting with a clean, dry towel. Do not bath or swim until instructed by your doctor. Do not scratch, rub, or pick at the dressing. Do not apply any topical ointments or lotions until dressing is completely removed and/or instructed by your doctor. There may be a small piece of suture material at one end of your incision. Do not pull or trim this. If it is bothersome or catching on clothing, you may cover it with a band-aid. FOLLOW UP VISIT: If appointment is not already scheduled: Please call [facility] to make a follow-up appointment for 2 weeks after your surgery at . Pending Studies at Discharge: No Stand-Alone Forms: My [facility], Opioid Pain Management, Smoking Cessation Medications and DC Order Prescriptions: New acetaminophen 500 mg Tablet 1,000 mg PO Q8 PRN (Reason: pain/fevers) Qty: 90 RF: 0 aspirin 325 mg Tablet,Delayed Release (Dr/Ec) 325 mg PO BID 28 Days Qty: 56 RF: 0 oxycodone 5 mg Tablet 5 mg PO Q6H MDD 6 tabs PRN (Reason: pain) Qty: 30 RF: 0 celecoxib [Celebrex] 200 mg Capsule 200 mg PO BID PRN (Reason: pain/inflammation) Qty: 28 RF: 0 sennosides [Senokot] 8.6 mg Tablet 17.2 mg PO HS PRN (Reason: constipation) Qty: 28 RF: 0 Continued atorvastatin 10 mg Tablet 10 mg PO HS RF: 0 glucosamine sulfate [Glucosamine] 500 mg Tablet 2,000 mg PO QAM RF: 0 lisinopril 10 mg Tablet 10 mg PO HS RF: 0 Multivitamin 50 Plus Tablet 1 tab PO QAM RF: 0 diclofenac sodium 1 % Gel 2 g TOPICAL UD PRN (Reason: Pain) RF: 0 cholecalciferol (vitamin D3) [Vitamin D3] 2,000 unit Tablet 2,000 unit PO QAM RF: 0 Discontinued acetaminophen [Tylenol Arthritis Pain] 650 mg Tablet Extended Release 1,300 mg PO HS RF: 0 naproxen sodium [Aleve] 220 mg Tablet 440 mg PO QAM RF: 0 Discharge Orders: Discharge Order (Routine); Ordered 06/17/19 Ordered By: Homer Lindquist/Other Patient Handouts: DVT Prevent Admission Data Admit Date/Time: 06/16/19 12:17 Attending Provider: Felice Gillette Admit Provider: Felice Gillette Primary Care Provider: Marilia Hobbs Other Interventions: Discharge Summary Assessment (RN) Last Done: 06/17/19 15:14 DC Date/Time DO NOT enter until pt leaves facility: 06/17/19 16:04
[2019-06-17] MEDS ORDERED: CeleBREX 200 MG CAP PO SCH (21:00)
== END 2019-06-17 16:04 | disposition home health service (06) | DRG 470 ==
LOC: ASU 07:37 → 3E 12:17